=== PATIENT | female | born 1955 | race Caucasian/White ===

== ENCOUNTER 2020-02-12 15:29 | Emergency (ER) | payer OTHER ==
[~2020-02-12] VITALS: Ht 172.7 cm; Wt 136.1 kg
--- OUTSIDE RECORDS SUMMARY | 2020-02-12 16:41 | XMS REPORT | Clinical Summary ---
Author Author [facility] Organization [facility] Address Unknown Phone Unavailable Care Team Providers Care Senior Buyer Name Role Phone Asked, No Pcp PCP Unavailable Allergies Comments Active Allergy Reactions Severity Noted Date Penicillin G 06/15/2016 Benzathin,Procain Medications End Date Status Medication Sig Dispensed Refills Start Date Active albuterol (PROAIR Inhale 2 0 HFA,PROVENTIL puffs every 6 HFA,VENTOLIN HFA) 90 (six) hours mcg/actuation inhaler as needed for wheezing. 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 Hirsutism 06/15/2016 Heart murmur 06/15/2016 Surgical History Surgery Date Site/Laterality Comments HYSTERECTOMY Medical History Medical History Date Comments Heart murmur Family History Medical History Relation Name Comments Leukemia Father Colon cancer Maternal Grandmother Breast cancer Paternal Grandmother Relation Name Status Comments Father Maternal Grandmother Paternal Grandmother Social History Date Tobacco Use Types Packs/Day Years Used Never Smoker Smokeless Tobacco: Never Used Drinks/Week oz/Week Comments Alcohol Use No Sex Assigned at Date Recorded Not on file Obstetrics History Term Pre Abrt (TAB) (SAB) (Ect) Mult Lvng Comments Grav Para 3 3 3 3 Date GA Total Labor Labor/2nd/3rd Weight Sex Delivery Anes PTL Ashley A1 A5 Name Clin Outcome Vag-Spont Living Term Vag-Spont Living Term CS-Unspec Living Term Last Filed Vital Signs Not on file Plan of Treatment Health Maintenance Due Date Last Done Comments BREAST CANCER SCREENING 1957 COLONOSCOPY SCREENING 2007 SHINGLES VACCINES (#1) 2007 INFLUENZA VACCINE 12/09/2019 01/25/2009 Results Not on fileafter 02/11/2019 Insurance Type Payer Benefit Subscriber ID Effective Phone Address Plan / Dates Group HMO CIGNA CIGNA OPEN [id number] [id number] ACCESS/NET resent WORK Advance Directives For more information, please contact: [phone] Patient Vault Teller Explanation Type Date Recorded Advance Directives, Living Will and 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
--- NOTE | 2020-02-12 18:38 | Diagnostic Imaging Report ---
X-ray 3 views of the foot. HISTORY: Pain. COMPARISON: None available. FINDINGS: Bones: No acute displaced fracture. Osseous alignment is within normal limits. Bipartite tibial sesamoid and os peroneum. Joints: The joint spaces are well-maintained. Soft tissues: There is linear radiodense structure within the soft tissue on the plantar aspect of the great toe. IMPRESSION: Foreign body on the plantar soft tissue of the great toe. No associated fracture or dislocation. Signed by: Layla Mensah MD on 02/12/2020 6:34 PM
--- NOTE | 2020-02-12 18:45 | Emergency Department Note ---
History of Present Illnes History of Present Illness Chief Complaint: General Medicine Complaints History of Present Illness This is a 64 year old female Chief Complaint Comment PATIENT IN FROM HOME WITH COMPLAINTS OF LEFT FOOT PAIN X 1 WEEK; DENIES ANY KNOWN INJURY OR FALL. STATES THAT IT GOT WORSE TODAY AND NOW SHE IS UNABLE TO WALK. RATES PAIN 4/10 . Historian: Patient Arrival Mode: Car Onset (how long ago): day(s) (3) Location: left foot Radiation: Denies non-radiation, Denies back, Denies neck, Denies extremity, Denies abdomen, Denies periumbilical, Denies flank, Denies proximal, Denies distal, Denies other Severity: mild Onset quality: gradual Duration (how long): day(s) (2) Timing of current episode: constant Progression: unchanged Chronicity: new Relieving factors: none Exacerbating factors: none Past Medical/Family History Physician Review I have reviewed the patient's past medical and family history. Any updates have been documented here. Past Medical History Recent Fever: No Clinical Suspicion of Infectio: No New/Unexplained Change in Ment: No Past Medical History: Osteoarthritis Other Medical History: HEART MURMER Past Surgical History: Hysterectomy, T&A, Other Surgery: SKIN GRAFT BROKEN ARM Social History Smoking Cessation: Never Smoker Alcohol Use: None Review of Systems Review of Systems Constitutional: Reports no symptoms EENTM: Reports no symptoms Cardiovascular: Reports no symptoms Respiratory: Reports no symptoms Gastrointestinal: Reports no symptoms Genitourinary: Reports no symptoms Musculoskeletal: Reports as per HPI Integumentary: Reports no symptoms Neurological: Reports no symptoms Psychological: Reports no symptoms Endocrine: Reports no symptoms Hematological/Lymphatic: Reports no symptoms Physical Exam Related Data Allergies: Coded Allergies: Penicillins (Verified Allergy, Severe, 02/12/20) codeine (Verified Allergy, Severe, 02/12/20) Triage Vital Signs Vital Signs Date Time Temp Pulse Resp B/P (MAP) Pulse Ox O2 Delivery O2 Flow Rate FiO2 02/12/20 15:44 97.3 84 20 146/62 100 Room Air Vital signs reviewed: Yes Physical Exam CONSTITUTIONAL Constitutional: Present well-developed, Present well-nourished HENT HENT: Present normocephalic, Present atraumatic, Present oropharynx clear/moist, Present nose normal HENT L/R: Present left ext ear normal, Present right ext ear normal EYES Eyes: Reports PERRL, Reports conjunctivae normal NECK Neck: Present ROM normal PULMONARY Pulmonary: Present effort normal, Present breath sounds normal CARDIOVASCULAR Cardiovascular: Present regular rhythm, Present heart sounds normal, Present capillary refill normal, Present normal rate GASTROINTESTINAL Abdominal: Present soft, Present nontender, Present bowel sounds normal GENITOURINARY Genitourinary: Present exam deferred SKIN Skin: Present warm, Present dry MUSCULOSKELETAL Musculoskeletal: Present ROM normal, Present swelling (left foot) NEUROLOGICAL Neurological: Present alert, Present oriented x 3, Present no gross motor or sensory deficits PSYCHOLOGICAL Psychological: Present mood/affect normal, Present judgement normal Results Imaging Imaging results reviewed: Yes Assessment & Plan Medical Decision Making MDM fx cellulitis Reassessment Reassessment time: 18:43 Reassessment same Assessment & Plan Final Impression: (1) Cellulitis Last Vital Signs Date Time Temp Pulse Resp B/P (MAP) Pulse Ox O2 Delivery O2 Flow Rate FiO2 10/5/20 15:44 97.3 84 20 146/62 100 Room Air JOEL HERNANDEZ MD Feb 12, 2020 18:45
== END 2020-02-12 19:04 | disposition home or self-care (01) ==
LOC: ER 16:39
DX: M79.672 Pain in left foot (principal); L03.116 Cellulitis of left lower limb
CPT/HCPCS: 99283